=== PATIENT | male | born 1985 | race Caucasian/White ===

== ENCOUNTER 2022-09-03 03:07 | Emergency (ER) | payer OTHER ==
[~2022-09-03] VITALS: Ht 182.9 cm; Wt 117.9 kg
[2022-09-03 03:49] VITALS: BP_SYST 126
--- NOTE | 2022-09-03 03:52 | NUR ---
Patient triaged and placed in waiting room. VS checked and patient appears in no acute distress at this time. Accompanied by self, awaiting available bed, and MD notified of need for MSE.
[2022-09-03] MEDS ORDERED: ALLO100T PO (03:56)
[2022-09-03] MEDS ORDERED: PRED10TA PO (03:57)
[2022-09-03] MEDS ORDERED: NAPR-1172 PO (03:57)
--- NOTE | 2022-09-03 03:58 | NUR ---
Patient ambulatory to [facility] for evaluatyion and treatment
[2022-09-03] MEDS ORDERED: OMEP20CA15 PO (04:27)
[2022-09-03] MEDS ORDERED: ACET-2634 PO (04:28)
[2022-09-03] MEDS: MAG HYDROX/AL HYDROX/SIMETH 30 ML, DICYCLOMINE HCL 20 MG, LIDOCAINE VISCOUS 2% 15ML (PO... PO ONE ×3 (05:25)
--- NOTE | 2022-09-03 05:25 | NUR ---
PT REPORT FEELING BETTER AFTER DRINKING GI COCKTAIL.
[2022-09-03 05:33] VITALS: BP_SYST 126
--- NOTE | 2022-09-03 05:36 | NUR ---
Patient given written and verbal discharge instructions and verbalizes understanding. ER MD discussed with patient the results and treatment provided. Patient in stable condition. ID arm band removed. Rx of TYLENOL & OMEPRAZOLE given. Patient educated on pain management and to follow up with PMD. Pain Scale 0/10. Opportunity for questions provided and answered. Medication side effect fact sheet provided.
== END 2022-09-03 05:33 | disposition home or self-care (01) ==
LOC: SED 03:07
DX: K29.70 Gastritis, unspecified, without bleeding (principal); R10.13 Epigastric pain; Z79.899 Other long term (current) drug therapy
CPT/HCPCS: 99283; J2001; J7030

== ENCOUNTER 2023-03-15 13:10 | Emergency (ER) | payer OTHER ==
[~2023-03-15] VITALS: Ht 185.4 cm; Wt 108.9 kg
[~2023-03-15 13:10] MED LIST: ACET-2634 PO; ALLO100T PO; NAPR-1172 PO; OMEP20CA15 PO; PRED10TA PO
[2023-03-15 13:12] VITALS: BP_SYST 123
--- NOTE | 2023-03-15 13:20 | NUR ---
RECEIVED PT AND ASSUMED CARE.
--- NOTE | 2023-03-15 13:30 | NUR ---
DR. BURGESS AT BEDSIDE TO ASSESS PT.
[2023-03-15 13:46] LABS: BASOPHILS # (AUTO) 0.1 K/uL (0.0-0.2); BASOPHILS % (AUTO) 0.7 % (0.0-2.0); EOSINOPHILS # (AUTO) 0.1 K/uL (0.0-0.4); EOSINOPHILS % (AUTO) 0.6 % (0.0-4.0); HEMATOCRIT 45.3 % (36-54); HEMOGLOBIN 15.4 g/dL (14.0-18.0); LYMPHOCYTES # (AUTO) 1.6 K/uL (1.0-5.5); LYMPHOCYTES % (AUTO) 14.3 % (20.5-51.5); MEAN CORPUSCULAR HEMOGLOBIN 28 pg (27-31); MEAN CORPUSCULAR HGB CONC 34 % (32-36); MEAN CORPUSCULAR VOLUME 83 fL (79.0-98.0); MONOCYTES # (AUTO) 0.5 K/uL (0.0-1.0); MONOCYTES % (AUTO) 4.8 % (1.7-9.3); NEUTROPHILS # (AUTO) 8.7 K/uL (1.8-7.7); NEUTROPHILS % (AUTO) 79.6 % (40.0-70.0); PLATELET COUNT (AUTO) 229 K/uL (130-430); RED BLOOD CELL COUNT(AUTO) 5.43 MIL/uL (4.2-6.2); RED CELL DISTRIBUTION WIDTH 14.5 % (9.0-15.0)
[2023-03-15 14:19] LABS: ALBUMIN 3.9 g/dL (3.4-4.8); CALCIUM 8.8 mg/dL (8.4-11.0); CREATININE 1.28 mg/dL (0.55-1.30); TOTAL BILIRUBIN 0.9 mg/dL (0.0-1.0)
[2023-03-15] MEDS ORDERED: PANTOPRAZOLE SODIUM 40 MG/VIAL (PROTONIX) IVP ONE (15:30)
--- NOTE | 2023-03-15 15:46 | NUR ---
PROTONIX 40 IVP GIVEN.
[2023-03-15 15:52] LABS: BILIRUBIN,URINE NEGATIVE (NEGATIVE); BLOOD, URINE 2+ (NEGATIVE); CLARITY/URINE CLEAR (CLEAR); COLOR,URINE YELLOW (YELLOW); GLUCOSE,URINE NEGATIVE (NEGATIVE); KETONES,URINE TRACE (NEGATIVE); LEUKOCYTE ESTERASE ,URINE NEGATIVE (NEGATIVE); NITRITE, URINE NEGATIVE (NEGATIVE); PROTEIN URINE NEGATIVE (NEGATIVE); UROBILINOGEN,URINE 0.2 (0.2-1.0)
[2023-03-15 16:07] LABS: BACTERIA,URINE RARE /HPF (None Seen); MUCUS,URINE None Seen /LPF (None Seen); WBC,URINE 0-3 /HPF (0-3)
[2023-03-15] MEDS ORDERED: ONDANSETRON HCL 4 MG/2 ML VIAL IVP ONE (16:30)
[2023-03-15] MEDS ORDERED: MORPHINE 4 MG INJ. 4 MG/ML VIAL IVP ONE (16:30)
[2023-03-15] MEDS ORDERED: MAG HYDROX/AL HYDROX/SIMETH 30 ML, DICYCLOMINE HCL 20 MG, LIDOCAINE VISCOUS 2% 15ML (PO... PO ONE ×3 (16:30)
--- NOTE | 2023-03-15 16:49 | NUR ---
MORPHINE 4MG IVP GIVEN. ZOFRAN 4MG IVP GIVEN, GI COCKTAIL PO GIVEN.
[2023-03-15] MEDS ORDERED: FAMO20TA8 PO (17:34)
[2023-03-15] MEDS ORDERED: OMEP20CA15 PO (17:34)
[2023-03-15] MEDS ORDERED: FAMOTIDINE PF 20 MG/2 ML VIAL IVP ONE (17:45)
[2023-03-15] MEDS ORDERED: FOLIC ACID 1 MG, THIAMINE HCL 100 MG, MAGNESIUM SULFATE 1 GM, MVI 10 ML in NACL 0.9% 1,... IV ONE (18:00)
[2023-03-15] MEDS ORDERED: MORPHINE 2 MG/ML INJ. SYRINGE IVP ONE (18:15)
--- NOTE | 2023-03-15 18:24 | NUR ---
MORPHINE 2MG IVP GIVEN FOR AB PAIN 05/07.
--- NOTE | 2023-03-15 19:08 | NUR ---
Patient given written and verbal discharge instructions and verbalizes understanding. ER MD discussed with patient the results and treatment provided. Patient in stable condition. ID arm band removed. IV catheter removed intact and dressing applied, no active bleeding. Rx of PEPCID, OMEPRAZOLE given. Patient educated on pain management and to follow up with PMD. Pain Scale 0/10. Opportunity for questions provided and answered. Medication side effect fact sheet provided.
[2023-03-15 19:09] VITALS: BP_SYST 122
== END 2023-03-15 19:16 | disposition home or self-care (01) ==
LOC: SED 13:10
DX: K29.70 Gastritis, unspecified, without bleeding (principal); R10.13 Epigastric pain; R11.0 Nausea; Z79.899 Other long term (current) drug therapy
CPT/HCPCS: 99284; 96374; 96375; 80053; 81000; 83690; 85025; 36415; 96376; J2001; J3490; J2405; C9113; J2270 ×2

== ENCOUNTER 2023-08-01 18:25 | Emergency (ER) | payer OTHER ==
[~2023-08-01] VITALS: Ht 182.9 cm; Wt 108.9 kg
[~2023-08-01 18:25] MED LIST changes: +FAMO20TA8 PO
[2023-08-01 19:14] VITALS: BP_SYST 136; PULSE 95; RESP 18; O2SAT 98
[2023-08-01] MEDS ORDERED: HYDROcodone/ACETAMIN 10-325 MG TAB PO ONE (19:15)
[2023-08-01] MEDS ORDERED: IBUPROFEN 800 MG TABLET PO ONE (19:15)
[2023-08-01] MEDS ORDERED: HYDROcodone/ACETAMIN 5-325 MG TAB (NORCO/ VICODIN) PO ONE ×2 (19:45→20:15)
[2023-08-01] MEDS ORDERED: IBUP800T54 PO (20:04)
[2023-08-01] MEDS ORDERED: TRAM50TA2 PO (20:04)
[2023-08-01 20:30] VITALS: BP_SYST 134; PULSE 108; RESP 20; TEMP 98.1; O2SAT 100
== END 2023-08-01 20:30 | disposition home or self-care (01) ==
LOC: SED 18:25
DX: S70.01XA Contusion of right hip, initial encounter (principal); S09.90XA Unspecified injury of head, initial encounter; Z79.899 Other long term (current) drug therapy; V86.09XA Driver of other special all-terrain or other off-road motor vehicle injured in traffic accident, initial encounter; Y93.89 Activity, other specified; Y92.89 Other specified places as the place of occurrence of the external cause; Y99.8 Other external cause status
CPT/HCPCS: 70450-TC; 71045; 72170-TC; 76376; 99284